=== PATIENT | male | born 1975 | race Caucasian/White ===

== ENCOUNTER 2017-06-17 13:31 | Inpatient (IN) | payer OTHER ==
[~2017-06-17] VITALS: Ht 665.5 cm; Wt 86.2 kg
--- NOTE | ~2017-06-17 | DS ---
Unit #: [id number] #: [id number] Patient: MEREDITH ROSALES [id number] [place] [address] [id number] MR#: [id number] NAME: MEREDITH ROSALES ROOM: P207 Age: 42 Sex: M Admission Date: 06/17/2017 : 1975 Discharge Date: 06/20/2017 Attending Physician: Yehuda Espinoza M.D. Primary Care Physician: Primary Care Physician No DISCHARGE SUMMARY REASON FOR ADMISSION The patient is a 42-year-old single white male admitted to the [address] [place] [address] Unit with a history of alcohol and cannabis abuse as well as depressed mood. HOSPITAL COURSE The patient was admitted to the [address] [place] [address] Unit and placed on suicide precautions. He was begun on Remeron 50 mg at h.s. and routine detoxification protocol for alcohol. The patient's stay in the hospital was a brief and uneventful one. His detox went smoothly, and by 06/20/2017 the patient was in bright spirits requesting discharge and it was so ordered. FINAL DIAGNOSES 1. Major depressive disorder, recurrent, moderate. 2. Alcohol use disorder. 3. Asthma. 4. Gastroesophageal reflux disease. DISPOSITION ON DISCHARGE The patient was discharged on the following medications: 1. Protonix 40 mg daily for GERD. 2. Neurontin 800 mg 4 times daily for chronic pain. 3. Remeron 15 mg at bedtime for depression. 4. Symbicort 2 puffs once daily for shortness of air. 5. Proventil HFA 2 puffs p.r.n. shortness of air. DIET AND ACTIVITY No dietary or physical restrictions were placed on the patient at the time of discharge. FOLLOWUP Followup will take place through the auspices of community mental health resources in [facility]. PROGNOSIS Considered fair. Dictated by... Yehuda Espinoza M.D. CB/gabrielle Unit #: [id number] #: [id number] Patient: MEREDITH ROSALES TD: 06/20/2017 13:33 JOB #: [id number] DISCHARGE SUMMARY Page 1 of 1 X Yehuda Espinoza MD DISCHARGE SUMMARY
--- NOTE | ~2017-06-17 | PN ---
Unit #: [id number] #: [id number] Patient: MEREDITH ROSALES [id number] [facility] [address] [place] [address] [id number] I MR#: [id number] NAME: MEREDITH ROSALES ROOM: P207 Age: 42 Sex: M Admission Date: 06/17/2017 : 1975 Attending Physician: Yehuda Espinoza M.D. Admitting Physician: Yehuda Espinoza M.D. Primary Care Physician: Primary Care Physician Cherry [facility]TGOM[facility] PROGRESS NOTES DATE 06/19/2017 DISCUSSION The patient's detox continues uneventfully. He complains of some "restlessness" last night which awoke him around 4 a.m. but otherwise exhibits little in the way of signs or symptoms of withdrawal. I have told him to expect discharge within the next couple of days. Dictated by... Yehuda Espinoza M.D. CB/bzg TD: 06/19/2017 13:17 JOB #: [id number] [facility] PROGRESS NOTES Page 1 of 1 X Yehuda Espinoza MD PROGRESS NOTE
--- NOTE | ~2017-06-17 | HP ---
Unit #: [id number] #: [id number] Patient: DEMARCUS ROSALES [id number] [place] [address] [id number] I MR#: [id number] NAME: DEMARCUS ROSALES ROOM: P258 Age: 42 Sex: M Admission Date: 06/17/2017 : 1975 Attending Physician: Yehuda Espinoza M.D. Admitting Physician: Yehuda Espinoza M.D. Primary Care Physician: Primary Care Physician No HISTORY AND PHYSICAL HISTORY OF PRESENT ILLNESS Demarcus is a 42 year old admitted to [address] [place] [address] because of his abuse of alcohol. PAST MEDICAL HISTORY 1. History of alcohol abuse. 2. Degenerative disc disease. PAST SURGICAL HISTORY Nothing reported. ALLERGIES No known drug allergies. SOCIAL HISTORY He smokes 1-1/2 packs per day. Drinks at least a 12 pack of beer on a daily basis and admits to using marijuana regularly. FAMILY HISTORY Medically noncontributory. REVIEW OF SYSTEMS CONSTITUTIONAL: No fever or chills. HEENT: Denies any sore throat, ear pain or runny nose. CARDIOVASCULAR: Denies chest pain, irregular heart rhythm or palpitations. CHEST: Denies shortness of breath or cough. No hemoptysis. GASTROINTESTINAL: Denies nausea, vomiting, diarrhea or chronic constipation. ENDOCRINE: Denies history of increased thirst or urination. No recent significant weight loss or gain. GENITOURINARY: Denies dysuria, frequency, or hematuria. SKIN: Denies any rashes. HEMATOLOGIC: Denies history of increased bleeding or bruising. MUSCULOSKELETAL: Denies any hot, swollen joints. No generalized muscle pain. NEUROLOGIC: Denies problems with vision or speech. No frequent, severe headaches. No numbness, tingling or weakness in any extremities. Denies loss of bladder or bowel control. CURRENT MEDICATIONS 1. Detox protocol. 2. Remeron 15 mg q.h.s. 3. Protonix 40 mg daily. Unit #: [id number] #: [id number] Patient: DEMARCUS ROSALES 4. Neurontin 800 mg q.i.d. PHYSICAL EXAMINATION GENERAL: Alert, well-nourished, in no apparent distress. VITAL SIGNS: Blood pressure 122/86, heart rate 66, respirations 16, temperature 98.6. WEIGHT: 190. HEIGHT: 6 feet 1 inch. SKIN: Warm and dry without rash or lesion. HEENT: Normocephalic. TMs not viewed. Oral and nasal passages clear. Conjunctivae clear. PERRLA. EOMs intact. NECK: Supple without lymphadenopathy or thyromegaly. HEART: Regular rate and rhythm without murmur. LUNGS: Clear. ABDOMEN: Soft, nontender. : Not done. EXTREMITIES: No evidence of cyanosis, clubbing or edema. Moves all without focal deficit. NEUROLOGICAL: Grossly within normal limits. Cranial Nerves: II: Visual mayfield are intact. III, IV AND : Extraocular movements are intact. Pupils are equal, round and reactive to light. V: Facial sensation is grossly normal. VII: Facial movements and expression are normal. VIII: Auditory acuity grossly intact. IX, X: Uvula is midline. Phonation is normal. XI: Patient shrugs shoulders and turns head normally. XII: Tongue protrudes in the midline. Sensory and Motor Function: Sensory and motor sensation is grossly normal. Motor: moves all extremities well. Coordination: Gait is normal. Deep Tendon Reflexes: Intact. IMPRESSION Psychiatric admission. RECOMMENDATIONS PSYCHIATRIC: Per psychiatrist. MEDICAL: See no contraindication to participate in facility's activities. MEDICAL PROGNOSIS Good. MEDICAL CONDITION Stable. Dictated by... Laura Ayon P.A.-C. for Rima Tony/mariangel TD: 06/18/2017 18:24 JOB #: [id number] Unit #: [id number] #: [id number] Patient: DEMARCUS ROSALES HISTORY AND PHYSICAL Page 1 of 1 X Laura Ayon HISTORY AND PHYSICAL
--- NOTE | ~2017-06-17 | PA ---
Unit #: [id number] #: [id number] Patient: MEREDITH ROSALES [id number] [facility] [address] [place] [address] [id number] MR#: [id number] NAME: MEREDITH ROSALES ROOM: P258 Age: 42 Sex: M Admission Date: 06/17/2017 : 1975 Date of Assessment: 06/18/2017 Attending Physician: Yehuda Espinoza M.D. Admitting Physician: Yehuda Espinoza M.D. Primary Care Physician: Primary Care Physician No PSYCHIATRIC ASSESSMENT IDENTIFYING INFORMATION The patient is a 42-year-old white male admitted to the [address] [place] [address] Unit with complaints of suicidal ideation. CHIEF COMPLAINT None given. INFORMANT(S) Patient, reliability is good. HISTORY OF PRESENT ILLNESS The patient is a 42-year-old white male with a history of alcohol dependence and depressed mood. The patient was admitted in transfer from [facility] in [place] where he had presented voicing positive suicidal ideation with plan to overdose on his sister's insulin. The patient reports feelings of depressed mood related to feelings that his 's family is "trying to keep him down." He reports that he and his are presently homeless but are staying with her sister. The patient denies prior psychiatric hospitalization. He has been prescribed Wellbutrin in the past but states that he was continuing to abuse alcohol during his trial of that medication. The patient reports treatment at the [facility], and this in fact is where he met his who at that time was abusing opioids. The patient reports that his is now clean from psychoactive substances. The patient is currently unemployed, stating that he "does jobs on the side." He reports ongoing abuse of alcohol including use the day prior to admission. He denies abuse of other psychoactive substances. The patient denies recent changes in sleep or appetite. He does have a history of having served a year in the [employer] for child support payment delinquency. PAST PSYCHIATRIC HISTORY As above. The patient has never been psychiatrically hospitalized per his report and denies prior suicide attempts or gestures. PAST MEDICAL HISTORY Significant for history of chronic pain and GERD. MEDICATIONS Prevacid, gabapentin. ALLERGIES None. Unit #: [id number] #: [id number] Patient: MEREDITH ROSALES FAMILY HISTORY Noncontributory. SOCIAL HISTORY The patient and lived with the patient's sister. They have been for 3 years. The patient has several grown children. He completed his GED and is presently unemployed. MENTAL STATUS EXAMINATION Examination at this time reveals the patient to be a well-developed well-nourished white male appearing stated age. He is in no apparent physical distress at the time of the examination. He is awake, alert, and oriented in all spheres. His mood is mildly dysphoric, his affect congruent. Speech is generally well coherent. There are no gross deficits in memory or cognition noted. Intelligence is judged to be in the average range based on fund of knowledge. The patient is cooperative throughout the interview. He is currently endorsing positive suicidal ideation with plan to inject insulin. He denies homicidal ideation. He denies any psychotic symptoms. His judgment and insight appear to be intact. ASSETS AND LIABILITIES The patient's assets: Motivation for change. Liabilities: Lack of resources. DIAGNOSTIC IMPRESSION 1. Major depressive disorder, recurrent, moderate. 2. Alcohol use disorder. 3. Chronic pain. 4. Gastroesophageal reflux disease. TREATMENT PLAN The patient remains hospitalized for safety and stabilization. Routine detoxification protocol for alcohol has been initiated, and the patient will be transferred to unit where chemical dependence programming can occur. I will begin the patient on Remeron 15 mg at bedtime, but he was sternly warned regarding the deleterious effect that ongoing abuse of alcohol will have on any potential recovery from his depressive symptoms. ESTIMATED LENGTH OF STAY 3 to 5 days. Followup will take place through the auspices of community mental health resources in the [facility]. Dictated by... Rima Arshad TD: 06/18/2017 13:43 JOB #: [id number] Unit #: [id number] #: [id number] Patient: MEREDITH ROSALES PSYCHIATRIC ASSESSMENT Page 1 of 1 X Yehuda Espinoza MD PSYCHIATRIC ASSESSMENT
[~2017-06-17 13:31] MED LIST: DICLOFENAC PO; FLEXERIL PO; IBUPROFEN PO
[2017-06-18 13:02] LABS: URINE APPEARANCE CLEAR; URINE BILIRUBIN NEG (NEG); URINE BLOOD NEG (NEG); URINE COLOR YELLOW; URINE GLUCOSE NEG (NEG); URINE KETONE NEG (NEG); URINE LEUKOCYTE ESTERASE NEG (NEG); URINE NITRATE NEG (NEG); URINE PROTEIN 1+ (NEG); URINE SPECIFIC GRAVITY 1.021 (1.003-1.035)
[2017-06-18 13:05] LABS: URBCS1 AUWI 0-2 /[HPF] (0-2); URINE BACTERIA AUWI NEG (NEGATIVE); URINE SQUAMOUS EPITHELIAL CELL NONE SEEN /[HPF]; UWBCS1 AUWI 0-2 (0-5)
[2017-06-18 13:19] LABS: AMPHETAMINE NEG (NEG); BARBITURATES NEG (NEG); BENZODIAZEPINES NEG (NEG); COCAINE NEG (NEG); MARIJUANA POS (NEG); OPIATES NEG (NEG); TRICYCLIC ANTIDEPRESSANTS NEG (NEG); U METHADONE NEG (NEG)
[2017-06-18 16:37] LABS: BASOPHIL# 0.1 X10e3 (0-0.3); BASOPHIL% 1.6 % (0-2.5); EOSINOPHIL# 0.1 X10e3 (0-0.7); EOSINOPHIL% 1.9 % (0.0-7.0); HEMATOCRIT 43.6 % (38.0-50.0); HEMOGLOBIN 14.8 gm/dL (13.0-16.0); LYMPHOCYTE# 1.8 X10e3 (1.0-3.5); LYMPHOCYTE% 29.3 % (17.0-45.0); MEAN CELL VOLUME 92.1 FL (83-96); MEAN CORPUSCULAR HEMOGLOBIN 31.3 PG (28-34); MEAN CORPUSCULAR HGB CONC 33.9 g/dL (30-36); MEAN PLATELET VOLUME 9.3 FL (6.5-11.5); MONOCYTE# 0.8 X10e3 (0-1.0); MONOCYTE% 13.6 % (3.0-12.0); NEUTROPHIL# 3.3 X10e3 (1.5-7.1); NEUTROPHIL% 53.6 % (40-75); PLATELET COUNT 186 X10e3 (140-420); RED BLOOD COUNT 4.74 X10e (3.90-5.60); RED CELL DISTRIBUTION WIDTH 14.3 % (11.0-15.5); WHITE BLOOD COUNT 6.1 X10e3 (4.0-10.5)
[2017-06-18 16:44] LABS: DIFF IND NO
[2017-06-18 17:09] LABS: ALBUMIN SERUM 4.4 g/dL (3.5-5.0); BILIRUBIN,TOTAL 1.2 mg/dL (0.2-2.0); BUN/CREATININE RATIO 13.33; CREATININE SERUM 1.2 mg/dL (0.6-1.4); GLOM FILT RATE Estimated 73.1 mL/min (>60); POTASSIUM 4.3 mmol/L (3.5-5.1); PROTEIN TOTAL SERUM 7.4 g/dL (6.0-8.3)
== END 2017-06-20 17:11 | disposition home or self-care (01) | DRG 885 ==
LOC: P2L 18:58 → P2S 18:58
PROVIDERS: Specialist
PROC: HZ2ZZZZ Detoxification Services for Substance Abuse Treatment (ICD-10-PCS; principal; 2017-06-17)
DX: F33.1 Major depressive disorder, recurrent, moderate (principal); R45.851 Suicidal ideations; F10.10 Alcohol abuse, uncomplicated; G89.29 Other chronic pain; K21.9 Gastro-esophageal reflux disease without esophagitis; F17.210 Nicotine dependence, cigarettes, uncomplicated; J45.909 Unspecified asthma, uncomplicated
CPT/HCPCS: 80053; 80307; 81003; 85025